=== PATIENT | female | born 1975 | race African-American/Black ===

== ENCOUNTER 2016-11-22 14:10 | Emergency (ER) | payer MEDICARE ==
[~2016-11-22 14:10] MED LIST: LANTUS SOLOSTAR3 ML TD
== END 2016-11-22 14:38 | disposition home or self-care (01) ==
LOC: CFTX 14:10
DX: S61.210A Laceration without foreign body of right index finger without damage to nail, initial encounter (principal); E10.9 Type 1 diabetes mellitus without complications; F17.210 Nicotine dependence, cigarettes, uncomplicated; Z23 Encounter for immunization; W45.8XXA Other foreign body or object entering through skin, initial encounter; Y92.098 Other place in other non-institutional residence as the place of occurrence of the external cause
CPT/HCPCS: 12001; 90471; 90715; 99283

== ENCOUNTER 2016-12-04 16:00 | Emergency (ER) | payer MEDICARE, OTHER ==
--- NOTE | ~2016-12-04 | CR109 ---
[facility] A Service of [facility] & [facility] RADIOLOGY TEXT RESULTS PATIENT: HECTOR GONZALEZ LOCATION: [facility] : [birth year] UNIT #: [id number] AGE: [address]: Rohit Candelario DO SEX: F ORDER DR: [id number] [facility] [address] [place], [place] [address] [id number] E MR#: [id number] Acc #: [id number] NAME: HECTOR GONZALEZ : 1975 SEX: F STUDY DATE/TIME: 12/04/2016 16:09 UNIT: [facility] ROOM: STUDY DESCRIPTION: CR Finger 2 View 2nd Rt Attending Physician: Roiht Candelario D.O. Ordering Physician: Rohit Candelario D.O. Primary Care Physician: Generic Doctor Not In System MEDICAL IMAGING REPORT This report is preliminary unless electronic signature is present EXAM Right second digit, 3 views. HISTORY Finger pain and swelling 1 week after laceration and placement of stitches. FINDINGS 3 views of the right second digit demonstrate satisfactory bone alignment. No fracture, joint space narrowing, bony erosion, or opaque soft tissue foreign body. IMPRESSION No acute finding. Satisfactory bone alignment. Dictated by... Ladarius Gomez M.D. THIS IS AN ELECTRONICALLY VERIFIED REPORT Ladarius Gomez M.D. at 12/04/2016 11:43 PM GABY/erica TD: 12/04/2016 17:38 JOB #: [id number] MEDICAL IMAGING REPORT Page 1 of 1 COPY
--- NOTE | ~2016-12-04 | CT71 ---
[facility] A Service of [facility] RADIOLOGY TEXT RESULTS PATIENT: HECTOR GONZALEZ LOCATION: [facility] : [birth year] UNIT #: [id number] AGE: [address]: Rohit Candelario DO SEX: F ORDER DR: [id number] [facility] [address] [address] [id number] E MR#: [id number] Acc #: [id number] NAME: HECTOR GONZALEZ : 1975 SEX: F STUDY DATE/TIME: 12/04/2016 17:17 UNIT: [facility] ROOM: STUDY DESCRIPTION: CT Head Wo Contrast Attending Physician: Rohit Candelario D.O. Ordering Physician: Rohit Candelario D.O. Primary Care Physician: Generic Doctor Not In System MEDICAL IMAGING REPORT This report is preliminary unless electronic signature is present EXAM CT brain without contrast. HISTORY Visualized disturbance since yesterday. No injury. TECHNIQUE This CT exam was performed with one or more of the following radiation dose reduction techniques: automatic exposure control, adjustment of mA and/or kV according to patient size, and iterative reconstruction. FINDINGS Axial noncontrast images were obtained from the skull base to the vertex. Ventricular size and configuration are normal. There is no evidence of acute infarct or hemorrhage. There are no extra-axial fluid collections. No mass lesion or mass effect is seen. There are no skull fractures. IMPRESSION Normal noncontrast head CT. Dictated by... Ladarius Gomez M.D. THIS IS AN ELECTRONICALLY VERIFIED REPORT Ladarius Gomez M.D. at 12/04/2016 11:44 PM GABY/erica TD: 12/04/2016 18:44 JOB #: [id number] [facility] A Service of [facility] RADIOLOGY TEXT RESULTS PATIENT: HECTOR GONZALEZ LOCATION: [facility] : 77 UNIT #: [id number] AGE: [address]: Rohit Candelario DO SEX: F ORDER DR: MEDICAL IMAGING REPORT Page 1 of 1 COPY
== END 2016-12-04 19:23 | disposition home or self-care (01) ==
LOC: CED 16:00
DX: H53.9 Unspecified visual disturbance (principal); S61.210D Laceration without foreign body of right index finger without damage to nail, subsequent encounter; E11.9 Type 2 diabetes mellitus without complications; F17.200 Nicotine dependence, unspecified, uncomplicated; Z88.8 Allergy status to other drugs, medicaments and biological substances; X58.XXXD Exposure to other specified factors, subsequent encounter
CPT/HCPCS: 36415; 70450; 73140; 84703; 99285